=== PATIENT | female | born 1955 | race Asian ===

== ENCOUNTER 2017-08-21 16:51 | Emergency (ER) | payer BC, OTHER ==
[~2017-08-21] VITALS: Ht 162.6 cm; Wt 56.5 kg
[2017-08-21 16:57] VITALS: BP 122/74
== END 2017-08-21 17:33 | disposition home or self-care (01) ==
LOC: ER 16:52
DX: M25.522 Pain in left elbow (principal); R22.32 Localized swelling, mass and lump, left upper limb; K21.9 Gastro-esophageal reflux disease without esophagitis
CPT/HCPCS: 73080; 99284